=== PATIENT | female | born 1985 | race Two or more races ===

== ENCOUNTER 2018-05-08 04:41 | Emergency (ER) | payer MEDICAID ==
[~2018-05-08] VITALS: Ht 154.9 cm; Wt 75.7 kg
[2018-05-08 05:43] LABS: Basophils # (auto) 0.1 uL; Basophils % (auto) 0.6 % (0.0-2.0); Eosinophils # (auto) 0.2 uL; Eosinophils % (auto) 0.9 % (0.0-7.0); Hematocrit 44.8 % (36.0-46.0); Hemoglobin 14.9 g/dL (12.2-16.2); Lymphocytes # (auto) 1.6 uL; Lymphocytes % (auto) 7.4 % (10.0-50.0); Mean Corpuscular Hemoglobin 29.1 pg (28.0-32.0); Mean Corpuscular Hgb Conc. 33.3 g/dL (32.0-36.0); Mean Corpuscular Volume 87.4 fL (80.0-100.0); Monocytes # (auto) 1.3 uL; Neutrophils # (auto) 18.2 uL; Neutrophils % (auto) 85.1 % (37.0-80.0); Platelet Count (auto) 394 10^3/uL (140-450); Red Blood Cells 5.13 10^6/uL (4.0-5.20); Red Cell Distribution Width 13.3 % (11.8-14.3); White Blood Cell 21.4 10^3/uL (4.4-10.8)
[2018-05-08] MEDS ORDERED: MORPHINE SULFATE 4 MG/ML SYR/VIAL IV ONE (05:45)
[2018-05-08] MEDS ORDERED: ONDANSETRON HCL 4 MG/2 ML VIAL IV ONE (05:45)
[2018-05-08 05:46] LABS: Urine Bacteria FEW /hpf (None Seen); Urine Blood TRACE /uL (Negative); Urine Mucus FEW (None Seen); Urine Specific Gravity 1.034 (1.001-1.035); Urine WBC 31 /hpf (0 - 5)
[2018-05-08 06:07] LABS: Albumin 3.5 g/dL (3.4-5.0); BUN/Creatinine Ratio 21.9; Bilirubin, Total 0.4 mg/dL (0.2-1.0); Calcium 8.7 mg/dL (8.5-10.1); Potassium 4.8 mmol/L (3.5-5.1); Total Protein 7.6 g/dL (6.4-8.2)
[2018-05-08 07:23] VITALS: BP 109/63
[2018-05-08] MEDS ORDERED: SODIUM CHLORIDE 0.9% 1,000 ML IV ONE (08:04)
[2018-05-08] MEDS ORDERED: KETOROLAC TROMETH 30 MG/ML 1ML VIAL IV ONE (08:15)
[2018-05-08] MEDS ORDERED: cefTRIAXone 1GM/10ml IVPUSH 10 ML IV ONE (08:15)
[2018-05-08 09:38] LABS: Amphetamine Screen, Urine POSITIVE (NEGATIVE); Barbiturate Scree,Urine NEGATIVE (NEGATIVE); Benzodiazephine Screen, Urine NEGATIVE (NEGATIVE); Cannabinoid Screen, Urine NEGATIVE (NEGATIVE); Cocaine Screen, Urine NEGATIVE (NEGATIVE); Opiate Scree,Urine NEGATIVE (NEGATIVE); Phencyclidine Screen, Urine NEGATIVE (NEGATIVE)
[2018-05-08 09:49] LABS: Alcohol, Urine < 3.0 mg/dL (0-5)
== END 2018-05-08 09:07 | disposition home or self-care (01) ==
LOC: ER 04:44
DX: N39.0 Urinary tract infection, site not specified (principal); E11.9 Type 2 diabetes mellitus without complications; Z90.49 Acquired absence of other specified parts of digestive tract; Z87.442 Personal history of urinary calculi
CPT/HCPCS: 36415; 74176; 80053; 80307; 81001; 81025; 85025; 96361; 96374; 96375; 99285; J1885; J2270; J2405

== ENCOUNTER 2018-10-30 07:15 | Emergency (ER) | payer MEDICAID ==
[~2018-10-30] VITALS: Ht 154.9 cm; Wt 75.7 kg
[2018-10-30 07:27] VITALS: BP 138/86
[2018-10-30] MEDS ORDERED: SODIUM CHLORIDE 0.9% 1,000 ML IV ONE (08:00)
[2018-10-30] MEDS ORDERED: KETOROLAC TROMETH 30 MG/ML 1ML VIAL IV ONE (08:45)
[2018-10-30 09:01] LABS: Basophils # (auto) 0 uL; Basophils % (auto) 0.4 % (0.0-2.0); Eosinophils # (auto) 0.1 uL; Eosinophils % (auto) 1.3 % (0.0-7.0); Hematocrit 43.3 % (36.0-46.0); Hemoglobin 14.4 g/dL (12.2-16.2); Lymphocytes # (auto) 3.7 uL; Lymphocytes % (auto) 35.1 % (10.0-50.0); Mean Corpuscular Hemoglobin 29.1 pg (28.0-32.0); Mean Corpuscular Hgb Conc. 33.3 g/dL (32.0-36.0); Mean Corpuscular Volume 87.5 fL (80.0-100.0); Monocytes # (auto) 0.6 uL; Monocytes % (auto) 5.7 % (0.0-12.0); Neutrophils # (auto) 6.1 uL; Neutrophils % (auto) 57.5 % (37.0-80.0); Platelet Count (auto) 328 10^3/uL (140-450); Red Blood Cells 4.95 10^6/uL (4.0-5.20); Red Cell Distribution Width 12.9 % (11.8-14.3); White Blood Cell 10.6 10^3/uL (4.4-10.8)
[2018-10-30 09:22] LABS: BUN/Creatinine Ratio 23.2; Calcium 8.4 mg/dL (8.5-10.1); Potassium 4.5 mmol/L (3.5-5.1)
== END 2018-10-30 10:25 | disposition home or self-care (01) ==
LOC: ER 07:15
DX: G44.209 Tension-type headache, unspecified, not intractable (principal); H66.92 Otitis media, unspecified, left ear; E11.65 Type 2 diabetes mellitus with hyperglycemia; Z87.442 Personal history of urinary calculi; Z90.49 Acquired absence of other specified parts of digestive tract
CPT/HCPCS: 36415; 70450; 80048; 82962; 85025; 96361; 96374; 99284; J1885

== ENCOUNTER 2020-01-04 18:48 | Inpatient (IN) | payer MEDICAID ==
[~2020-01-04] VITALS: Ht 154.9 cm; Wt 68.3 kg
[2020-01-04] MEDS ORDERED: IPRATROPIUM BROM 0.5 MG/2.5ML INH SOL NEB ONE (19:00)
[2020-01-04] MEDS ORDERED: ALBUTEROL SULF 2.5 MG/0.5ML(0.5%) NEB SOLN NEB ONE (19:00)
[2020-01-04] MEDS ORDERED: ACETAMINOPHEN 325 MG TAB PO ONE (19:15)
[2020-01-04 20:26] LABS: Basophils # (auto) 0 10 ^3/uL (0-0.2); Basophils % (auto) 0.4 % (0.0-2.0); Eosinophils # (auto) 0 10 ^3/uL (0-0.8); Eosinophils % (auto) 0.1 % (0.0-7.0); Hematocrit 41.1 % (36.0-46.0); Hemoglobin 14.1 g/dL (12.2-16.2); Lymphocytes # (auto) 2.6 10 ^3/uL (0.4-5.4); Lymphocytes % (auto) 25.5 % (10.0-50.0); Mean Corpuscular Hemoglobin 30.1 pg (28.0-32.0); Mean Corpuscular Hgb Conc. 34.4 g/dL (32.0-36.0); Mean Corpuscular Volume 87.3 fL (80.0-100.0); Monocytes % (auto) 10.2 % (0.0-12.0); Neutrophils # (auto) 6.5 10 ^3/uL (1.6-8.6); Neutrophils % (auto) 63.8 % (37.0-80.0); Nucleated Red Blood Cells % 0.2 %; Platelet Count (auto) 343 10^3/uL (140-450); Red Blood Cells 4.71 10^6/uL (4.0-5.20); Red Cell Distribution Width 12.8 % (11.8-14.3); White Blood Cell 10.2 10^3/uL (4.4-10.8)
[2020-01-04] MEDS ORDERED: SODIUM CHLORIDE 0.9% 1,000 ML IVB ONE (20:43)
[2020-01-04 20:45] LABS: Albumin 3.2 g/dL (3.4-5.0); Calcium 9.1 mg/dL (8.5-10.1); Potassium 4.3 mmol/L (3.5-5.1)
[2020-01-04] MEDS ORDERED: PROMETHAZINE HCL 25 MG/ML 1ML IV PRN (20:45)
[2020-01-04] MEDS ORDERED: SODIUM CHLORIDE 0.9% 1,000 ML IV ONE (20:45)
[2020-01-04 20:48] LABS: BUN/Creatinine Ratio 9.6
[2020-01-04 20:51] LABS: Bilirubin, Total 0.3 mg/dL (0.2-1.0); Total Protein 7.9 g/dL (6.4-8.2)
[2020-01-04 21:25] LABS: Magnesium 1.6 mg/dL (1.6-2.6)
[2020-01-04 21:38] LABS: INR 0.99 (0.9-1.15); Partial Thromboplastin Time 28.2 sec (23.64-32.05)
[2020-01-04 22:42] LABS: Urine Bacteria FEW /hpf (None Seen); Urine Blood Negative /uL (Negative); Urine Mucus FEW (None Seen); Urine Specific Gravity 1.044 (1.001-1.035); Urine WBC 36 /hpf (0 - 5)
[2020-01-05] MEDS ORDERED: ONDANSETRON HCL 4 MG/2 ML VIAL IV PRN (00:45)
[2020-01-05] MEDS ORDERED: TEMAZEPAM 15 MG CAP PO PRN (00:45)
[2020-01-05] MEDS ORDERED: DEXTROSE (50%) 50ML SYRG IV PRN (00:45)
[2020-01-05 01:55] VITALS: BP 121/78
[2020-01-05] MEDS: InsuLIN REG 1unit/0.01ml Soln (100units/ml) SC SCH ×3 (06:45→18:07)
[2020-01-05] MEDS: ACCU-CHEK COMFORT CURVE STRIP VI SCH ×3 (06:45→18:05)
[2020-01-05] MEDS ORDERED: ALBUTEROL SULF 2.5 MG/0.5ML(0.5%) NEB SOLN NEB PRN (06:45)
[2020-01-05] MEDS ORDERED: IOHEXOL 350 MG/ML 100ML IJ ONE (07:06)
[2020-01-05 09:00] VITALS: BP 115/82
[2020-01-05] MEDS: cefTRIAXone 1GM/50ML D5W 50 ML IV SCH (09:24)
[2020-01-05] MEDS: ACETAMINOPHEN 325 MG TAB PO PRN ×2 (09:29→22:18)
[2020-01-05] MEDS: FAMOTIDINE 20 MG TAB PO SCH ×2 (09:30→22:17)
[2020-01-05] MEDS: OSELTAMIVIR 75 MG CAP PO SCH (09:30)
[2020-01-05 10:04] VITALS: BP 115/82
[2020-01-05] MEDS ORDERED: AZITHROMYCIN 500MG/ 250ML 250 ML IV ONE (11:15)
[2020-01-05] MEDS: SODIUM CHLORIDE 0.9% 1,000 ML IV SCH ×2 (11:20→21:15)
[2020-01-05] MEDS: IPRATROPIUM BROM 0.5 MG/2.5ML INH SOL NEB SCH ×2 (12:39→19:07)
[2020-01-05] MEDS: ALBUTEROL SULF 2.5 MG/0.5ML(0.5%) NEB SOLN NEB SCH ×2 (12:39→19:07)
[2020-01-05 13:00] VITALS: BP 112/67
[2020-01-05 17:00] VITALS: BP 103/58
[2020-01-05 22:18] VITALS: BP 126/80
[2020-01-05] MEDS: INSULIN LANTUS (GLARGINE) 1 /0.01ml (100units/ml) SC SCH (22:18)
[2020-01-06] MEDS: ACCU-CHEK COMFORT CURVE STRIP VI SCH ×4 (00:31→18:10)
[2020-01-06] MEDS: InsuLIN REG 1unit/0.01ml Soln (100units/ml) SC SCH ×4 (00:31→18:16)
[2020-01-06 00:53] LABS: Alcohol, Urine < 3.0 mg/dL (0-5); Amphetamine Screen, Urine POSITIVE (NEGATIVE); Barbiturate Scree,Urine NEGATIVE (NEGATIVE); Cannabinoid Screen, Urine NEGATIVE (NEGATIVE); Cocaine Screen, Urine NEGATIVE (NEGATIVE); Opiate Scree,Urine NEGATIVE (NEGATIVE); Phencyclidine Screen, Urine NEGATIVE (NEGATIVE)
[2020-01-06 01:09] LABS: Benzodiazephine Screen, Urine NEGATIVE (NEGATIVE)
[2020-01-06 05:30] VITALS: BP 103/59
[2020-01-06 06:55] LABS: Basophils # (auto) 0 10 ^3/uL (0-0.2); Basophils % (auto) 0.4 % (0.0-2.0); Eosinophils # (auto) 0.1 10 ^3/uL (0-0.8); Eosinophils % (auto) 0.8 % (0.0-7.0); Hemoglobin 13.2 g/dL (12.2-16.2); Lymphocytes # (auto) 3.4 10 ^3/uL (0.4-5.4); Lymphocytes % (auto) 54.7 % (10.0-50.0); Mean Corpuscular Hemoglobin 29.3 pg (28.0-32.0); Mean Corpuscular Hgb Conc. 33.7 g/dL (32.0-36.0); Mean Corpuscular Volume 86.7 fL (80.0-100.0); Monocytes # (auto) 0.8 10 ^3/uL (0-1.3); Neutrophils # (auto) 1.9 10 ^3/uL (1.6-8.6); Neutrophils % (auto) 31.1 % (37.0-80.0); Nucleated Red Blood Cells % 0.2 %; Platelet Count (auto) 287 10^3/uL (140-450); Red Cell Distribution Width 12.7 % (11.8-14.3); White Blood Cell 6.2 10^3/uL (4.4-10.8)
[2020-01-06 06:58] LABS: Potassium 3.8 mmol/L (3.5-5.1)
[2020-01-06 07:04] LABS: BUN/Creatinine Ratio 21.2; Calcium 8.3 mg/dL (8.5-10.1)
[2020-01-06] MEDS: SODIUM CHLORIDE 0.9% 1,000 ML IV SCH ×2 (07:15→17:15)
[2020-01-06] MEDS: ALBUTEROL SULF 2.5 MG/0.5ML(0.5%) NEB SOLN NEB SCH ×3 (07:16→18:39)
[2020-01-06] MEDS: IPRATROPIUM BROM 0.5 MG/2.5ML INH SOL NEB SCH ×3 (07:16→18:39)
[2020-01-06] MEDS: cefTRIAXone 1GM/50ML D5W 50 ML IV SCH (09:45)
[2020-01-06] MEDS: FAMOTIDINE 20 MG TAB PO SCH ×2 (09:45→21:43)
[2020-01-06] MEDS: OSELTAMIVIR 75 MG CAP PO SCH ×3 (09:45→21:43)
[2020-01-06 09:53] VITALS: BP 111/72
[2020-01-06] MEDS ORDERED: OSELTAMIVIR 75 MG CAP PO SCH (10:00)
[2020-01-06] MEDS ORDERED: AZITHROMYCIN 500MG/ 250ML 250 ML IV SCH (10:00)
[2020-01-06] MEDS: AZITHROMYCIN 250 MG TAB PO SCH (11:27)
[2020-01-06] MEDS: traMADol HCL 50 MG TAB PO PRN (11:41)
[2020-01-06 14:20] VITALS: BP 101/71
[2020-01-06 16:23] VITALS: BP 100/54
[2020-01-06] MEDS: INSULIN LANTUS (GLARGINE) 1 /0.01ml (100units/ml) SC SCH (21:52)
[2020-01-06 22:00] VITALS: BP 101/59
[2020-01-07] MEDS: InsuLIN REG 1unit/0.01ml Soln (100units/ml) SC SCH ×4 (00:26→18:29)
[2020-01-07] MEDS: ACCU-CHEK COMFORT CURVE STRIP VI SCH ×4 (00:26→18:28)
[2020-01-07] MEDS: SODIUM CHLORIDE 0.9% 1,000 ML IV SCH (03:15)
[2020-01-07 05:00] VITALS: BP 110/54
[2020-01-07] MEDS: ALBUTEROL SULF 2.5 MG/0.5ML(0.5%) NEB SOLN NEB SCH ×3 (06:00→18:09)
[2020-01-07] MEDS: IPRATROPIUM BROM 0.5 MG/2.5ML INH SOL NEB SCH ×3 (06:00→18:10)
[2020-01-07 06:21] LABS: BUN/Creatinine Ratio 23.1; Calcium 8.6 mg/dL (8.5-10.1); Potassium 4.4 mmol/L (3.5-5.1)
[2020-01-07 09:00] VITALS: BP 99/49
[2020-01-07] MEDS: cefTRIAXone 1GM/50ML D5W 50 ML IV SCH (11:47)
[2020-01-07] MEDS: OSELTAMIVIR 75 MG CAP PO SCH (11:47)
[2020-01-07] MEDS: FAMOTIDINE 20 MG TAB PO SCH (11:48)
[2020-01-07] MEDS: AZITHROMYCIN 250 MG TAB PO SCH (11:48)
[2020-01-07] MEDS ORDERED: LACTULOSE 20Gm/30ML SOLN PO ONE ×2 (13:15→14:45)
[2020-01-07] MEDS ORDERED: SODIUM CHLORIDE 0.9% 1,000 ML IV SCH (13:15)
[2020-01-07 13:22] VITALS: BP 117/69
[2020-01-07] MEDS: traMADol HCL 50 MG TAB PO PRN (13:42)
[2020-01-07 17:00] VITALS: BP 112/58
[2020-01-07 21:49] VITALS: BP 119/71
== END 2020-01-07 21:45 | disposition left against medical advice (07) | DRG 720 ==
LOC: ER 18:48 → OVERFLOW 18:49 → CENTRAL 01-05 01:54
PROVIDERS: ADMIT Nurse Practitioner; ATTEND Internal Medicine
DX: A41.9 Sepsis, unspecified organism (principal); J10.00 Influenza due to other identified influenza virus with unspecified type of pneumonia; E87.1 Hypo-osmolality and hyponatremia; E86.0 Dehydration; N39.0 Urinary tract infection, site not specified; R06.03 Acute respiratory distress; F17.210 Nicotine dependence, cigarettes, uncomplicated; Z53.29 Procedure and treatment not carried out because of patient's decision for other reasons; Z90.49 Acquired absence of other specified parts of digestive tract
CPT/HCPCS: 36415; 70450; 71045; 71046; 74176; 80048; 80053; 80307; 81001; 82150; 82962; 83036; 83690; 83735; 84484; 84702; 85025; 85379; 85610; 85730; 87086; 87804; 93005; 94640; 96361; 96374; G0378; J0696; J1815

== ENCOUNTER 2020-07-04 14:17 | Inpatient (IN) | payer MEDICAID ==
[~2020-07-04] VITALS: Ht 160 cm; Wt 67.6 kg
[2020-07-04] MEDS ORDERED: SODIUM CHLORIDE 0.9% 1,000 ML IV ONE ×2 (14:29)
[2020-07-04 15:35] LABS: Basophils # (auto) 0 10 ^3/uL (0-0.2); Basophils % (auto) 0.2 % (0.0-2.0); Eosinophils # (auto) 0.1 10 ^3/uL (0-0.8); Eosinophils % (auto) 0.8 % (0.0-7.0); Hematocrit 39.5 % (36.0-46.0); Hemoglobin 12.9 g/dL (12.2-16.2); Lymphocytes # (auto) 1.6 10 ^3/uL (0.4-5.4); Lymphocytes % (auto) 13.4 % (10.0-50.0); Mean Corpuscular Hemoglobin 29.3 pg (28.0-32.0); Mean Corpuscular Hgb Conc. 32.6 g/dL (32.0-36.0); Monocytes # (auto) 0.6 10 ^3/uL (0-1.3); Neutrophils # (auto) 9.4 10 ^3/uL (1.6-8.6); Neutrophils % (auto) 80.6 % (37.0-80.0); Nucleated Red Blood Cells % 0.1 %; Platelet Count (auto) 307 10^3/uL (140-450); Red Blood Cells 4.39 10^6/uL (4.0-5.20); Red Cell Distribution Width 12.8 % (11.8-14.3); White Blood Cell 11.7 10^3/uL (4.4-10.8)
[2020-07-04 15:53] LABS: Albumin 2.8 g/dL (3.4-5.0); Anion Gap 7 (5-15); Blood Urea Nitrogen 11 mg/dL (7-18); Calcium 7.2 mg/dL (8.5-10.1); Carbon Dioxide 22 mmol/L (21-32); Chloride 111 mmol/L (98-107); Potassium 4.4 mmol/L (3.5-5.1); Sodium 140 mmol/L (136-145)
[2020-07-04 16:00] LABS: Alanine Aminotransferase 26 U/L (13-56); Alkaline Phosphatase 148 U/L (45-117); Aspartate Aminotransferase 12 U/L (15-37); BUN/Creatinine Ratio 15.1; Bilirubin, Total 0.2 mg/dL (0.2-1.0); GFR African American 117 mL/min; GFR Non-African American 97 mL/min; Total Protein 5.9 g/dL (6.4-8.2)
[2020-07-04 16:16] LABS: Glucose 520 mg/dL (74-106)
[2020-07-04 17:06] LABS: Urine Bacteria FEW /hpf (None Seen); Urine Blood 3+ /uL (Negative); Urine Specific Gravity 1.028 (1.001-1.035); Urine WBC 5 /hpf (0 - 5)
[2020-07-04] MEDS ORDERED: cefTRIAXone 1GM/50ML D5W 50 ML IV ONE (17:30)
[2020-07-04] MEDS ORDERED: InsuLIN REG 1unit/0.01ml Soln (100units/ml) IV ONE (17:30)
[2020-07-04] MEDS ORDERED: NITROGLYCERIN 0.4 MG SL TAB SL PRN (18:30)
[2020-07-04] MEDS ORDERED: LORazepam 0.5 MG TAB PO PRN (18:30)
[2020-07-04] MEDS ORDERED: ENOXAPARIN SOD 40 MG/0.4 ML SYRINGE SC ONE (18:30)
[2020-07-04] MEDS ORDERED: MORPHINE SULF INJ 2 MG/ML SYRINGE 1ML IV PRN ×2 (18:30)
[2020-07-04] MEDS ORDERED: ALUM & MAG HYDROX-SIMETH LIQ(MAALOX) 30 ML PO PRN (18:30)
[2020-07-04] MEDS ORDERED: INSULIN LANTUS (GLARGINE) 1 /0.01ml (100units/ml) SC ONE (18:30)
[2020-07-04] MEDS ORDERED: DEXTROSE (50%) 50ML SYRG IV PRN (18:30)
[2020-07-04] MEDS ORDERED: HYDROcodone-ACET 5/325MG TAB PO PRN (18:30)
[2020-07-04] MEDS ORDERED: SODIUM CHLORIDE 0.9% 2,000 ML IV ONE (18:30)
[2020-07-04] MEDS ORDERED: METOCLOPRAMIDE HCL 5MG/ml INJ 2ml VIAL IV PRN (18:30)
[2020-07-04] MEDS ORDERED: ACETAMINOPHEN 325 MG TAB PO PRN (18:30)
[2020-07-04] MEDS ORDERED: DOCUSATE SOD 100 MG CAP PO PRN (18:30)
[2020-07-04 19:47] LABS: Cholesterol 207 mg/dL (< 200)
[2020-07-04 19:51] LABS: HDL Cholesterol 37 mg/dL (40-59); LDL Cholesterol 133 mg/dL (< 100); Triglycerides 351 mg/dL (< 150)
[2020-07-04 20:12] LABS: Alcohol, Urine < 3.0 mg/dL (0-10); Amphetamine Screen, Urine POSITIVE (NEGATIVE); Barbiturate Scree,Urine NEGATIVE (NEGATIVE); Benzodiazephine Screen, Urine NEGATIVE (NEGATIVE); Cannabinoid Screen, Urine NEGATIVE (NEGATIVE); Cocaine Screen, Urine NEGATIVE (NEGATIVE); Opiate Scree,Urine NEGATIVE (NEGATIVE); Phencyclidine Screen, Urine NEGATIVE (NEGATIVE)
[2020-07-04] MEDS: SODIUM CHLORIDE 0.9% 1,000 ML IV SCH (20:59)
[2020-07-04 21:42] VITALS: BP 111/69
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
[2020-07-04 22:31] VITALS: BP 111/69
[2020-07-05] MEDS: InsuLIN REG 1unit/0.01ml Soln (100units/ml) SC SCH ×3 (00:06→12:40)
[2020-07-05] MEDS: ACCU-CHEK COMFORT CURVE STRIP VI SCH ×3 (00:12→12:39)
[2020-07-05 05:00] VITALS: BP 116/83
[2020-07-05] MEDS: SODIUM CHLORIDE 0.9% 1,000 ML IV SCH (05:08)
[2020-07-05 08:00] VITALS: BP 138/88
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
[2020-07-05 09:00] VITALS: BP 138/88
[2020-07-05] MEDS ORDERED: ENOXAPARIN SOD 40 MG/0.4 ML SYRINGE SC SCH (10:00)
[2020-07-05] MEDS ORDERED: CEFTRIAXONE SODIUM 2 GM in D5W 5% 50 ML IV SCH (10:00)
[2020-07-05] MEDS ORDERED: ASPirin 81 mg TAB PO SCH (10:00)
[2020-07-05] MEDS ORDERED: ATOR20TA50 PO (12:08)
[2020-07-05] MEDS ORDERED: CIPR-173 PO (12:08)
[2020-07-05] MEDS ORDERED: METF-372 PO (12:08)
[2020-07-05 12:56] VITALS: BP 138/88
[2020-07-05 13:00] VITALS: BP 132/90
--- NOTE | 2020-07-05 14:24 | NUR ---
assessment Patient is a 34 year old female who is alert and oriented. Patients cognitive abilities are intact. Prior to admission patient lived home with family and functioned independently. Patient informed me she is able to care for her own ADLs. Per patient she will return home to her prior living arrangements post discharge and family will transport her home. I informed patient of her consult regarding requesting info on her insurance and safety. Patient stated she wants to know the name of her insurance. I informed her it was [facility]. Patient informed me she never requested anything about safety. Patient feels safe returning home on discharge. Patient has no post discharge needs identified. I informed patient she has a right to speak to a social media intern regarding all care. I informed patient she has a right to participate in any and all discharge planning. Patient does not have a POA and advanced directive. I have offered patient information on POA and advanced directives. I informed the patient the advantages and benefits of having an Advanced Directive. Patient verbalized understanding and agreed to discharge plan. Addendum: 07/05/20 at 1426 by Mayra DE Amended: Links added.
--- NOTE | 2020-07-05 14:55 | NUR ---
Discharge instructions given as ordered. Encourage to follow up with PMD as instructed. All questions and concerns addressed. Patient verbalized understanding. Medication reconciliation form completed and copy given to patient. No home medications held in Pharmacy, and no needed vaccines to be given. IV removed with catheter intact, pressure dressing applied. Telemetry unit returned to ICU. Pt educated to [facility] way out of the hospital to picker tender her medicaiton, pt verbalized understanding.
--- NOTE | 2020-07-05 15:30 | NUR ---
Patient taken to vehicle via wheelchair with all personal belongings, accompanied by staff member. No distress noted at time of departure.
[2020-07-05] MEDS ORDERED: ATORVASTATIN 20 MG TAB PO SCH (22:00)
== END 2020-07-05 15:30 | disposition home or self-care (01) | DRG 420 ==
LOC: ER 14:17 → EDUNIT# 14:17 → EDBD 14:17 → TELE 14:18 → TELE-WESTW 21:42
PROVIDERS: ADMIT Hospitalist; ATTEND Internal Medicine
DX: E11.65 Type 2 diabetes mellitus with hyperglycemia (principal); E86.0 Dehydration; D72.829 Elevated white blood cell count, unspecified; E83.51 Hypocalcemia; N39.0 Urinary tract infection, site not specified; E78.5 Hyperlipidemia, unspecified; F15.90 Other stimulant use, unspecified, uncomplicated; F17.210 Nicotine dependence, cigarettes, uncomplicated; Y09 Assault by unspecified means; Z91.19 Patient's noncompliance with other medical treatment and regimen; Z82.49 Family history of ischemic heart disease and other diseases of the circulatory system; Z83.3 Family history of diabetes mellitus; Z87.442 Personal history of urinary calculi; Z90.49 Acquired absence of other specified parts of digestive tract; Z79.4 Long term (current) use of insulin; F19.10 Other psychoactive substance abuse, uncomplicated
CPT/HCPCS: 36415; 36600; 70450; 71045; 80053; 80061; 80307; 81001; 82805; 82962; 83036; 83930; 84484; 85025; 87040; 87086; 87088; 87186; 93005; 99291; G0378; J0696; J1815; J7060

== ENCOUNTER 2024-11-10 10:28 | Emergency (ER) | payer MEDICAID ==
[~2024-11-10] VITALS: Ht 154.9 cm; Wt 68.9 kg
[~2024-11-10 10:28] MED LIST: ATOR20TA50 PO; CIPR-173 PO; METF-372 PO
[2024-11-10 10:40] VITALS: BP 135/81; TEMP 97.9
--- NOTE | 2024-11-10 11:09 | DVH ---
EXAM: XY CHEST TWO VIEWS ROUTINE CLINICAL HISTORY: PAINFUL COUGH COMPARISON: CHEST TWO VIEWS ROUTINE on DOS: 01/04/20 TECHNIQUE: Frontal and lateral view of the chest was obtained FINDINGS: Lines and Tubes: None Lungs: No focal consolidation. Pleura: No effusion. No pneumothorax. Cardiomediastinal contours: Unremarkable Pulmonary vasculature: Within normal limits. Bones: No acute osseous abnormality. IMPRESSION: 1. No acute cardiopulmonary disease. HS:Y
[2024-11-10 12:09] VITALS: PULSE 105; RESP 18; O2SAT 99
[2024-11-10] MEDS ORDERED: PROM1SOL4 PO (12:49)
[2024-11-10] MEDS ORDERED: BENZ200C64 PO (12:49)
[2024-11-10] MEDS ORDERED: ALBU108A5 IN (12:49)
--- NOTE | 2024-11-10 12:49 | ED.PDOC ---
SOB-HPI HPI Comments cough x 4 days dry Chief Complaint: Flu like Time Seen by MD: 11:38 Primary Care Provider: NONE Mode of Arrival: Ambulatory Past Medical History PAST MEDICAL HISTORY: DM, Kidney Stones Surgical History: Cholecystectomy Family History Family History: Family hx of DM, Family hx of HTN Social History Smoker: Cigarettes, Less Than 1 Pack/Day Alcohol: Denies ETOH Use Drugs: Denies Drug Use Lives In: Home X-Ray, Labs, Meds, VS Vital Signs Date Time Temp Pulse Resp B/P (MAP) Pulse Ox O2 Delivery O2 Flow Rate FiO2 11/10/24 12:09 105 18 99 Room Air 11/10/24 11:00 18 99 Room Air* 0 21 11/10/24 10:40 97.9 105 18 135/81 (99) 99 Departure 1 Departure Time of Disposition: 12:48 Impression: Primary Impression: Bronchitis Disposition: 01 HOME / SELF CARE / HOMELESS Condition: Stable e-Prescriptions Albuterol Sulfate (Albuterol Sulfate Hfa) 108 Mcg/Act Aer 108 MCG IN Q6HP PRN for 30 Days, #1 AER 0 Refills Prov: EMMY LITTLE NP 11/10/24 Promethazine-Dm (Promethazine Dm 6.25-15 mg/5Ml) 1 Anamaria Anamaria 5 ML PO TID for 10 Days, #150 ML 0 Refills Prov: EMMY LITTLE NP 11/10/24 Benzonatate (Benzonatate) 200 Mg Cap 1 CAP PO TID for 10 Days, #30 CAP 0 Refills Prov: EMMY LITTLE NP 11/10/24 Discharged With: Self EMMY LITTLE NP Nov 10, 2024 12:49
== END 2024-11-10 12:49 | disposition home or self-care (01) ==
LOC: ER 10:28
DX: J40 Bronchitis, not specified as acute or chronic (principal); F17.210 Nicotine dependence, cigarettes, uncomplicated; E11.9 Type 2 diabetes mellitus without complications; Z90.49 Acquired absence of other specified parts of digestive tract; Z87.442 Personal history of urinary calculi
CPT/HCPCS: 71046

== ENCOUNTER 2024-11-10 20:10 | Emergency (ER) | payer MEDICAID, OTHER ==
[~2024-11-10] VITALS: Ht 154.9 cm; Wt 69.9 kg
[~2024-11-10 20:10] MED LIST changes: +ALBU108A5 IN; +BENZ200C64 PO; +PROM1SOL4 PO
[2024-11-10 20:30] VITALS: BP 135/78; PULSE 117; RESP 18; O2SAT 100
[2024-11-10] MEDS ORDERED: SODIUM CHLORIDE 0.9% 1,000 ML IV ONE (20:45)
[2024-11-10] MEDS ORDERED: HYDROcodone-ACET 5/325MG TAB PO ONE (20:45)
--- NOTE | 2024-11-10 21:09 | ED.PDOC ---
History of Present Illness HPI Comments 38 year old female presents to the ED with a chief complaint of headache onset today around 1930. Patient states she was discharged from this ED today with a diagnosis of Bronchitis and was prescribed medication, went home and used the inhaler that was prescribed. Patient began experiencing headache, worse on LT side radiating to neck, dizziness, blurry vision, sees black lines from LT eye, sees black spots from RT eye. Patient checked her blood glucose at home, was 500 and took her Metformin and insulin prior to ED arrival. During triage patient's BG was 150. Past medical history of DM, HLD. Denies nausea, vomiting, diarrhea, abdominal pain, chest pain. No other symptoms or modifying factors present at this time. Chief Complaint: Headache Time Seen by MD: 20:51 Primary Care Provider: NONE Reviewed Notes: Medications, Allergies Allergies: Coded Allergies: NO KNOWN ALLERGIES (Unverified , 05/08/18) Home Meds Active Scripts Albuterol Sulfate (Albuterol Sulfate Hfa) 108 Mcg/Act Aer, 108 MCG IN Q6HP PRN for 30 Days, #1 AER 0 Refills Prov:EMMY LITTLE NP 11/10/24 Promethazine-Dm (Promethazine Dm 6.25-15 mg/5Ml) 1 Anamaria Anamaria, 5 ML PO TID for 10 Days, #150 ML 0 Refills Prov:EMMY LITTLE NP 11/10/24 Benzonatate (Benzonatate) 200 Mg Cap, 1 CAP PO TID for 10 Days, #30 CAP 0 Refills Prov:EMMY LITTLE NP 11/10/24 Atorvastatin Calcium (ATORVASTATIN CALCIUM) 20 Mg Tab, 20 MG PO HS for 30 Days, #30 TAB Prov:ALEX BILLY MD 07/05/20 Ciprofloxacin Hcl (Cipro) 500 Mg Tab, 1 TAB PO BID, #10 TAB Prov:ALEX BILLY MD 07/05/20 Metformin Hydrochloride (Metformin Hcl) 1,000 Mg Tab, 1 TAB PO BIDWM, #120 TAB 5 Refills Prov:ALEX BILLY MD 07/05/20 Information Source: Patient Mode of Arrival: Ambulatory Severity: Moderate Timing: Hours Duration: Since onset Prehospital treatment: Other (Metformin ) Past Medical History PAST MEDICAL HISTORY: DM, High Lipids, Kidney Stones Surgical History: Cholecystectomy Family History Family History: Family hx of DM, Family hx of HTN Social History Smoker: Cigarettes, Less Than 1 Pack/Day Alcohol: Denies ETOH Use Drugs: Denies Drug Use Lives In: Home Constitutional: denies: chills, diaphoresis, fatigue, fever, malaise, sweats, weakness, others EENTM: reports: blurred vision; denies: double vision, ear bleeding, ear discharge, ear drainage, ear pain, ear ringing, eye pain, eye redness, hearing loss, mouth pain, mouth swelling, nasal discharge, nose bleeding, nose congestion, nose pain, photophobia, tearing, throat pain, throat swelling, voice changes, others Respiratory: reports: cough, shortness of breath; denies: hemoptysis, orthopnea, SOB at rest, SOB with excertion, stridor, wheezing, others Cardiovascular: denies: chest pain, dizzy spells, diaphoresis, Dyspnea on exertion, edema, irregular heart beat, left arm pain, lightheadedness, palpitations, PND, syncope, others Gastrointestinal: denies: abdomen distended, abdominal pain, blood streaked bowels, constipated, diarrhea, dysphagia, difficulty swallowing, hematemesis, melena, nausea, poor appetite, poor fluid intake, rectal bleeding, rectal pain, vomiting, others Genitourinary: denies: abnormal vagina bleeding, burning, dyspareunia, dysuria, flank pain, frequency, hematuria, incontinence, pain, , vagina discharge, urgency, others Neurological: reports: dizziness, headache; denies: fainting, left sided numbness, left sided weakness, numbness, paresthesia, pre-existing deficit, right sided numbness, right sided weakness, seizure, speech problems, tingling, tremors, weakness, others Musculoskeletal: reports: neck pain; denies: back pain, gout, joint pain, joint swelling, muscle pain, muscle stiffness, others Integumetry: denies: bruises, change in color, change in hair/nails, dryness, laceration, lesions, lumps, rash, wounds, others Allergic/Immunocompromised: denies: Difficulty Healing, Frequent Infections, Hives, Itching, others Hematologic/Lymphatic: denies: anemia, blood clots, easy bleeding, easy bruising, swollen glands, others Endocrine: denies: excessive hunger, excessive sweating, excessive thirst, excessive urination, flushing, intolerance to cold, intolerance to heat, unexplained weight gain, unexplained weight loss, others Psychiatric: denies: anxiety, bipolar disorder, depression, hopeless, panic disorder, schizophrenia, sleepless, suicidal, others All Other Systems: Reviewed and Negative Physical Exam General Appearance: Mild Distress HEENT: Other (Pupils symmetric, extraocular movements intact, no facial asymmetry) Neck: Full Range of Motion, Normal Inspection, Other (Left cervical paraspinal muscular tenderness/spasm) Respiratory: Lungs Clear, No Accessory Muscle Use, No Respiratory Distress, Normal Breath Sounds Cardiovascular: No Edema, No JVD, Regular Rate/Rhythm Breast Exam: Deferred Gastrointestinal: Non Tender, Soft Genitalia: Deferred Pelvic: Deferred Rectal: Deferred Extremities: Normal inspection, Normal range of motion, Non-tender, No pedal edema Neurologic: Alert (Oriented x4), Normal Affect, Normal Mood, Other (Ambulatory without difficulty. No gross focal deficit.) Cerebellar Function: NOT DONE Reflexes: NOT DONE Skin: Dry, Normal Color, Warm Lymphatic: NOT DONE Was a procedure done? Was a procedure done?: No Differential Dx Considerations may include: CVA, TIA, migraine, tension headache, intracranial hemorrhage, mass lesion, among others X-Ray, Labs, Meds, VS Vital Signs Date Time Temp Pulse Resp B/P (MAP) Pulse Ox O2 Delivery O2 Flow Rate FiO2 11/10/24 20:30 97.8 117 18 135/78 (97) 100 Lab Test 11/10/24 22:07 11/10/24 21:10 11/10/24 21:00 11/10/24 20:23 Range/Units Troponin I High Sensitivity < 3 L < 3 L </=34 ng/L White Blood Count 8.6 4.4-10.8 10^3/uL Red Blood Count 4.71 4.0-5.20 10^6/uL Hemoglobin 14.1 12.2-16.2 g/dL Hematocrit 41.4 36.0-46.0 % Mean Corpuscular Volume 87.9 80.0-100.0 fL Mean Corpuscular Hemoglobin 29.9 28.0-32.0 pg Mean Corpuscular Hemoglobin Concent 34.1 32.0-36.0 g/dL Red Cell Distribution Width 13.2 11.8-14.3 % Platelet Count 278 140-450 10^3/uL Mean Platelet Volume 7.3 6.9-10.8 fL Neutrophils (%) (Auto) 66.7 37.0-80.0 % Lymphocytes (%) (Auto) 24.7 10.0-50.0 % Monocytes (%) (Auto) 7.6 0.0-12.0 % Eosinophils (%) (Auto) 0.6 0.0-7.0 % Basophils (%) (Auto) 0.4 0.0-2.0 % Neutrophils # (Auto) 5.7 1.6-8.6 10 ^3/uL Lymphocytes # (Auto) 2.1 0.4-5.4 10 ^3/uL Monocytes # (Auto) 0.6 0-1.3 10 ^3/uL Eosinophils # (Auto) 0.1 0-0.8 10 ^3/uL Basophils # (Auto) 0 0-0.2 10 ^3/uL Nucleated Red Blood Cells 0.1 % Sodium Level 140 136-145 mmol/L Potassium Level 4.4 3.5-5.1 mmol/L Chloride Level 103 98-107 mmol/L Carbon Dioxide Level 28 20-31 mmol/L Anion Gap 9 5-15 Blood Urea Nitrogen 12 9-23 mg/dL Creatinine 0.67 0.550-1.02 mg/dL Glomerular Filtration Rate Calc 115 >90 mL/min BUN/Creatinine Ratio 17.9 10.0-20.0 Serum Glucose 135 H 74-106 mg/dL Calcium Level 10.1 8.7-10.4 mg/dL Total Bilirubin 0.3 0.2-1.0 mg/dL Aspartate Amino Transferase (AST) 19 13-40 U/L Alanine Aminotransferase (ALT) 32 7-40 U/L Alkaline Phosphatase 69 46-116 U/L B-Type Natriuretic Peptide 11.78 0-100 pg/mL Total Protein 7.3 5.7-8.2 g/dL Albumin 4.5 3.2-4.8 g/dL Beta-Hydroxybutyric Acid 0.082 < 0.4 mmol/L Beta HCG, Quantitative 0.6 L 1.5-4.2 mIU/mL Blood Gas Specimen Type Arterial Blood Gas Sample Site Right radial Blood Gas Patient Temperature 37.0 Arterial Blood Date Drawn [id number] Arterial Blood pH 7.419 7.350-7.450 Arterial Blood Partial Pressure CO2 39.4 32.0-45.0 mmHg Arterial Blood Partial Pressure O2 61.5 L 83.0-108.0 mmHg Arterial Blood HCO3 24.9 21.0-28.0 mmol/L Arterial Blood Oxygen Saturation 90.7 L 94.0-98.0 % Arterial Blood Base Excess 0.5 -2.0-3.0 mmol/L Arterial Blood Oxyhemoglobin 89.7 L 94.0-98.0 % Arterial Blood Carboxyhemoglobin 0.7 0.5-1.5 % Arterial Blood Methemoglobin 0.4 0.0-1.5 % Kimo Test Modified Blood Gas Total Hemoglobin 14.00 12.0-16.0 g/dL Blood Gas Modality Room air FiO2 % 21.0 POC Glucose 150 H 70-106 mg/dl [place] [address] Ph: [phone] DIAGNOSTIC IMAGING Diagnostic Imaging Report : [id number] Signed PATIENT: JAVED SMITH EACCT: [id number] UNIT: [id number] : 1985 LOC: ER ROOM / BED: / AGE / SEX: 38 / F ADM STATUS: REG ER SERVICE 41 ORDERING PHYSICIAN: ELLEN WELLS MD PROCEDURE(s): CXRP - CHEST PORTABLE REASON: hyperglycemia ORDER NUMBER(s): [id number], ACCESSION NUMBER(s): [id number] CHEST RADIOGRAPH Indication: hyperglycemia Technique: Single frontal view of the chest was obtained COMPARISON: CHEST PORTABLE on DOS: 07/04/20, CHEST PORTABLE on DOS: 01/04/20 FINDINGS: Lines and Tubes: None Lungs: Clear Pleura: No effusion. No pneumothorax. Cardiomediastinal contours: Unremarkable Bones: Unremarkable IMPRESSION: 1. No acute disease. ATED BY: GEOVANNY KAUR MD DICTATED DATE/TIME: 11/10/242227 SIGNED BY: GEOVANNY KAUR MD SIGNED DATE/TIME: 11/10/242227 CC: [address] [address] Ph: [phone] DIAGNOSTIC IMAGING Diagnostic Imaging Report : [id number] Signed PATIENT: JAVED SMITH ACCT: [id number] UNIT: [id number] : 1985 LOC: ER ROOM / BED: / AGE / SEX: 38 / F ADM STATUS: REG ER SERVICE 41 ORDERING PHYSICIAN: ELLEN WELLS MD PROCEDURE(s): HWOCT - HEAD WITHOUT CONTRAST REASON: headache ORDER NUMBER(s): [id number], ACCESSION NUMBER(s): [id number] EXAM: CT HEAD WITHOUT CONTRAST INDICATION: headache TECHNIQUE: CT of the head without intravenous contrast. Radiation Dose : 1. Head: CT Dose: CTDI volume is 51.98 mGy. Dose-length product is 833.44 mGy*cm The dose indicators for CT are the volume Computed Tomography (CT) Dose Index (CTDIvol) and the Dose Length Product (DLP), and are measured in units of mGy and mGy-cm, respectively. These indicators are not patient dose, but values generated from the CT scanner acquisition factors. The report includes radiation exposure data for exposures received during this examination. COMPARISON: HEAD WITHOUT CONTRAST on DOS: 07/04/20, HEAD WITHOUT CONTRAST on DOS: 01/04/20 FINDINGS: There is no evidence of acute intracranial hemorrhage, extra-axial collection, mass effect, midline shift, herniation or hydrocephalus. The ventricles, sulci and cisterns are age appropriate. The de [place] vega-white differentiation is intact. Patchy periventricular and subcortical white matter hypoattenuation is nonspecific but may be related to small vessel ischemic disease. The visualized paranasal sinuses and mastoid air cells are clear. The surrounding soft tissues and osseous structures are unremarkable. IMPRESSION: No acute intracranial abnormality. ATED BY: DEBO SCOTT DO DICTATED DATE/TIME: 11/10/242231 SIGNED BY: DEBO SCOTT DO SIGNED DATE/TIME: 11/10/242231 CC: X-Ray, Labs, Meds, VS Comment 38-year-old female with a history of diabetes and dyslipidemia complaining of a severe headache and vision changes Vitals remarkable for heart rate 117 Exam unremarkable Rhythm strip independently interpreted by me: Sinus rhythm, rate 98, no ectopy. CT head unremarkable Chest x-ray unremarkable CBC, CMP, BNP, troponins, hCG, beta hydroxybutyrate and ABG unremarkable for any abnormality of acute significance. Blood glucose 135. Patient treated with the following in the ED: 1 L 0.9 normal saline IV bolus, Sublette 5/325 mg, 2 tabs p.o. , aspirin 325 mg p.o. On re-evaluation, pain somewhat improved but still present. No new focal neurologic changes. Severe headache and symptoms consistent with scotomata are concerning for possible CVA/TIA, could also be consistent with atypical migraine. Patient has CVA risk factors including diabetes and dyslipidemia. Plan was to admit the patient for brain MRI and Neurology evaluation. When hospitalist attempted to call the patient for evaluation, there was no answer. Pt was called an additional time, with no answer. It was assumed the patient eloped. Time of 1ST Reevaluation: 21:21 Reevaluation 1ST: Unchanged Patient Education/Counseling: Diagnosis, Treatment, Prognosis Family Education/Counseling: No Family Present Additional Information I reviewed the following notes from patient's past medical encounters: The following tests were ordered, and results were reviewed by me: EKG, TROP - x3, CBC, CMP, BNP, UA, EKG, ACCUCHECK, CT HEAD WITHOUT CONTRAST, BETA- HYDROXYBUTYRATE, ABG W/ CO-OX, BETA HCG I reviewed and agreed with the following test results read by other providers: CT HEAD WITHOUT CONTRAST I discussed treatment and results with medical personnel and: patient Departure 1 Departure Time of Disposition: 23:34 Impression: Primary Impression: Headache Qualified Codes: R51.9 - Headache, unspecified Additional Impression: Vision disturbance Disposition: 07 LEFT AWOL/ELOPED Condition: Guarded Discharged With: Self Critical Care Note Critical Care Time?: No Stability Stability form required: No Heart Score Heart Score: Heart Score Response (Comments) Value History N/A 0 EKG N/A 0 Age N/A 0 Risk Factors N/A 0 Troponin N/A 0 Total 0 I personally scribed for ELLEN WELLS MD ([email or web address]) on 11/10/24 at 21:09. Electronically submitted by Candie Sarmiento ([email or web address]). I personally scribed for ELLEN WELLS MD ([email or web address]) on 11/10/24 at 21:11. Electronically submitted by Candie Sarmiento ([email or web address]). I personally scribed for ELLEN WELLS MD ([email or web address]) on 11/10/24 at 22:40. Electronically submitted by Candie Sarmiento ([email or web address]). ELLEN WELLS MD Nov 10, 2024 21:09
[2024-11-10 21:19] LABS: Base Excess 0.5 mmol/L (-2.0-3.0)
[2024-11-10 21:49] LABS: Basophils # (auto) 0 10 ^3/uL (0-0.2); Basophils % (auto) 0.4 % (0.0-2.0); Eosinophils # (auto) 0.1 10 ^3/uL (0-0.8); Eosinophils % (auto) 0.6 % (0.0-7.0); Hematocrit 41.4 % (36.0-46.0); Hemoglobin 14.1 g/dL (12.2-16.2); Lymphocytes # (auto) 2.1 10 ^3/uL (0.4-5.4); Lymphocytes % (auto) 24.7 % (10.0-50.0); Mean Corpuscular Hemoglobin 29.9 pg (28.0-32.0); Mean Corpuscular Hgb Conc. 34.1 g/dL (32.0-36.0); Mean Corpuscular Volume 87.9 fL (80.0-100.0); Monocytes # (auto) 0.6 10 ^3/uL (0-1.3); Monocytes % (auto) 7.6 % (0.0-12.0); Neutrophils # (auto) 5.7 10 ^3/uL (1.6-8.6); Neutrophils % (auto) 66.7 % (37.0-80.0); Nucleated Red Blood Cells % 0.1 %; Platelet Count (auto) 278 10^3/uL (140-450); Red Blood Cells 4.71 10^6/uL (4.0-5.20); Red Cell Distribution Width 13.2 % (11.8-14.3); White Blood Cell 8.6 10^3/uL (4.4-10.8)
[2024-11-10 21:53] LABS: Alanine Aminotransferase 32 U/L (7-40); Albumin 4.5 g/dL (3.2-4.8); Alkaline Phosphatase 69 U/L (46-116); Anion Gap 9 (5-15); Aspartate Aminotransferase 19 U/L (13-40); BUN/Creatinine Ratio 17.9 (10.0-20.0); Blood Urea Nitrogen 12 mg/dL (9-23); Calcium 10.1 mg/dL (8.7-10.4); Carbon Dioxide 28 mmol/L (20-31); Chloride 103 mmol/L (98-107); Potassium 4.4 mmol/L (3.5-5.1); Sodium 140 mmol/L (136-145)
[2024-11-10 21:54] LABS: Total Protein 7.3 g/dL (5.7-8.2)
[2024-11-10 21:58] LABS: Bilirubin, Total 0.3 mg/dL (0.2-1.0); Glucose 135 mg/dL (74-106)
--- NOTE | 2024-11-10 22:31 | DVH ---
CHEST RADIOGRAPH Indication: hyperglycemia Technique: Single frontal view of the chest was obtained COMPARISON: CHEST PORTABLE on DOS: 07/04/20, CHEST PORTABLE on DOS: 01/04/20 FINDINGS: Lines and Tubes: None Lungs: Clear Pleura: No effusion. No pneumothorax. Cardiomediastinal contours: Unremarkable Bones: Unremarkable IMPRESSION: 1. No acute disease.
--- NOTE | 2024-11-10 22:34 | DVH ---
EXAM: CT HEAD WITHOUT CONTRAST INDICATION: headache TECHNIQUE: CT of the head without intravenous contrast. Radiation Dose : 1. Head: CT Dose: CTDI volume is 51.98 mGy. Dose-length product is 833.44 mGy*cm The dose indicators for CT are the volume Computed Tomography (CT) Dose Index (CTDIvol) and the Dose Length Product (DLP), and are measured in units of mGy and mGy-cm, respectively. These indicators are not patient dose, but values generated from the CT scanner acquisition factors. The report includes radiation exposure data for exposures received during this examination. COMPARISON: HEAD WITHOUT CONTRAST on DOS: 07/04/20, HEAD WITHOUT CONTRAST on DOS: 01/04/20 FINDINGS: There is no evidence of acute intracranial hemorrhage, extra-axial collection, mass effect, midline s hift, herniation or hydrocephalus. The ventricles, sulci and cisterns are age appropriate. The de [place] vega-white differentiation is intact. Patchy periventricular and subcortical white matter hypoattenuation is nonspecific but may be related to small vessel ischemic disease. The visualized paranasal sinuses and mastoid air cells are clear. The surrounding soft tissues and osseous structures are unremarkable. IMPRESSION: No acute intracranial abnormality.
== END 2024-11-11 00:03 | disposition left against medical advice (07) ==
LOC: ER 20:10
DX: H53.8 Other visual disturbances (principal); R51.9 Headache, unspecified; E11.9 Type 2 diabetes mellitus without complications; E78.5 Hyperlipidemia, unspecified; F17.210 Nicotine dependence, cigarettes, uncomplicated; Z90.49 Acquired absence of other specified parts of digestive tract; Z79.899 Other long term (current) drug therapy
CPT/HCPCS: 36415; 36600; 70450; 71045; 80053; 82010; 82805; 82962; 83880; 84484; 84702; 85025

== ENCOUNTER 2025-01-26 00:17 | Emergency (ER) | payer MEDICAID ==
[~2025-01-26] VITALS: Ht 154.9 cm; Wt 67.5 kg
[2025-01-26 00:39] VITALS: BP 128/77; RESP 16; TEMP 97.6; O2SAT 98
[2025-01-26 04:27] LABS: Lactic Acid w/Reflex 2.9 mmol/L (0.4-2.0)
[2025-01-26] MEDS ORDERED: SODIUM CHLORIDE 0.9% 1,000 ML IV ONE (04:30)
--- NOTE | 2025-01-26 04:30 | DVH ---
CHEST RADIOGRAPH Indication: CP Technique: Single frontal view of the chest was obtained Comparison: XY CHEST PORTABLE on DOS: 11/10/24 FINDINGS: Lines and Tubes: None Lungs: No focal consolidation. Pleura: No effusion. No pneumothorax. Cardiomediastinal contours: Unremarkable Bones: No acute osseous abnormality. IMPRESSION: 1. No acute cardiopulmonary disease.
[2025-01-26 04:35] LABS: Basophils # (auto) 0 10 ^3/uL (0-0.2); Basophils % (auto) 0.2 % (0.0-2.0); Eosinophils # (auto) 0.1 10 ^3/uL (0-0.8); Eosinophils % (auto) 0.4 % (0.0-7.0); Hematocrit 40.4 % (36.0-46.0); Hemoglobin 13.2 g/dL (12.2-16.2); Lymphocytes # (auto) 1.2 10 ^3/uL (0.4-5.4); Lymphocytes % (auto) 5.9 % (10.0-50.0); Mean Corpuscular Hemoglobin 28.6 pg (28.0-32.0); Mean Corpuscular Hgb Conc. 32.6 g/dL (32.0-36.0); Mean Corpuscular Volume 87.7 fL (80.0-100.0); Monocytes # (auto) 0.8 10 ^3/uL (0-1.3); Monocytes % (auto) 4.2 % (0.0-12.0); Neutrophils # (auto) 17.6 10 ^3/uL (1.6-8.6); Neutrophils % (auto) 89.3 % (37.0-80.0); Platelet Count (auto) 330 10^3/uL (140-450); Red Cell Distribution Width 12.8 % (11.8-14.3); White Blood Cell 19.7 10^3/uL (4.4-10.8)
--- NOTE | 2025-01-26 04:35 | DVH ---
Exam: CT CT AB PEL WITH IV CON ONLY History: Abdominal pain Comparison Study: None available at time of dictation. Technique: Multidetector spiral CT of the abdomen was performed from lung bases to pubic symphysis. A xial imaging was performed with intravenous contrast following the uneventful administration of 100 m l Omnipaque 300. Coronal and sagittal multiplanar reformats were obtained from the axial data set by the technologist. Radiation Dose : 1. Abdomen/Pelvis: CTDIvol 18.61 mGy, DLP 1035.35 mGy*cm. Findings: Lung Bases: Lung bases are clear. Visualized portions of the heart and pericardium are unremarkable. Liver: The liver is normal in size. No focal lesions. Gallbladder and Biliary Tree: The gallbladder is surgically absent. No intrahepatic or extrahepatic b iliary ductal dilatation. Spleen: Unremarkable Pancreas: The pancreas enhances normally and there are no focal lesions. The main pancreatic duct is not dilated Adrenal Glands: Unremarkable Kidneys: Kidneys enhance symmetrically. No calculi or hydronephrosis. GI tract: The stomach is grossly normal in appearance. Fluid-filled small bowel loops without dilatat ion. Diffuse stool throughout the colon. Normal caliber appendix. Peritoneum/mesentery/retroperitoneum. No evidence of free intraperitoneal air. No ascites. No evidenc e of suspicious lymphadenopathy. Abdominal Wall: Fat containing umbilical hernia. Fat containing supraumbilical hernias. Vasculature: Abdominal aorta and main branches are unremarkable. Normal vascular enhancement. Urinary Bladder: Grossly unremarkable for degree of distention. Pelvic Organs: Enhancing circumscribed mass along the cranial aspect of the uterus measuring 2.4 cm m ost likely representing a subserosal fibroid. Musculoskeletal: No aggressive focal bony lesions, acute fractures or dislocation. IMPRESSION: 1. Fluid-filled small bowel loops without dilatation, may reflect enteritis in the appropriate clinic al setting. 2. Uterine fibroid.
[2025-01-26 04:37] VITALS: PULSE 110
--- NOTE | 2025-01-26 04:37 | ED.PDOC ---
GI ASSESSMENT HPI Comments 39-year-old female with past medical history pertinent for DM, presents to ED for epigastric pain x2 hours, associated with nausea, vomiting, shortness of breath. Patient also reports chest pain radiating to her left neck and shoulder. She states that these symptoms started when she was lying down. Patient denies alleviating or aggravating factors. Chief Complaint: Nausea/Vomiting Time Seen by MD: 03:57 Primary Care Provider: NONE Reviewed Notes: Nurses Notes, Medications, Allergies Allergies: Coded Allergies: NO KNOWN ALLERGIES (Unverified , 05/08/18) Home Meds Active Scripts Albuterol Sulfate (Albuterol Sulfate Hfa) 108 Mcg/Act Aer, 108 MCG IN Q6HP PRN for 30 Days, #1 AER 0 Refills Prov:EMMY LITTLE HOT SAW OPERATOR 11/10/24 Promethazine-Dm (Promethazine Dm 6.25-15 mg/5Ml) 1 Anamaria Anamaria, 5 ML PO TID for 10 D ays, #150 ML 0 Refills Prov:EMMY LITTLE NP 11/10/24 Benzonatate (Benzonatate) 200 Mg Cap, 1 CAP PO TID for 10 Days, #30 CAP 0 Refills Prov:EMMY LITTLE NP 11/10/24 Atorvastatin Calcium (ATORVASTATIN CALCIUM) 20 Mg Tab, 20 MG PO HS for 30 Days, #30 TAB Prov:ALEX BILLY MD 07/05/20 Ciprofloxacin Hcl (Cipro) 500 Mg Tab, 1 TAB PO BID, #10 TAB Prov:ALEX BILLY MD 07/05/20 Metformin Hydrochloride (Metformin Hcl) 1,000 Mg Tab, 1 TAB PO BIDWM, #120 TAB 5 Refills Prov:ALEX BILLY MD 07/05/20 Mode of Arrival: Ambulatory Past Medical History PAST MEDICAL HISTORY: DM, High Lipids, Kidney Stones Surgical History: Cholecystectomy Family History Family History: Family hx of DM, Family hx of HTN Social History Smoker: Cigarettes, Less Than 1 Pack/Day Alcohol: Denies ETOH Use Drugs: Denies Drug Use Lives In: Home Constitutional: denies: chills, diaphoresis, fatigue, fever, malaise, sweats, weakness, others EENTM: denies: blurred vision, double vision, ear bleeding, ear discharge, ear drainage, ear pain, ear ringing, eye pain, eye redness, hearing loss, mouth dianna n, mouth swelling, nasal discharge, nose bleeding, nose congestion, nose pain, photophobia, tearing, throat pain, throat swelling, voice changes, others Respiratory: reports: shortness of breath; denies: cough, hemoptysis, orthopnea, SOB at rest, SOB with excertion, stridor, wheezing, others Cardiovascular: reports: chest pain; denies: dizzy spells, diaphoresis, Dyspnea on exertion, edema, irregular heart beat, left arm pain, lightheadedness, palpitations, PND, syncope, others Gastrointestinal: reports: abdominal pain, nausea, vomiting; denies: abdomen distended, blood streaked bowels, constipated, diarrhea, dysphagia, difficulty swallowing, hematemesis, melena, poor appetite, poor fluid intake, rectal bleeding, rectal pain, others Genitourinary: denies: abnormal vagina bleeding, burning, dyspareunia, dysuria, flank pain, frequency, hematuria, incontinence, pain, , vagina discharge, urgency, others Neurological: denies: dizziness, fainting, headache, left sided numbness, left sided weakness, numbness, paresthesia, pre-existing deficit, right sided numbness, right sided weakness, seizure, speech problems, tingling, tremors, weakness, others Musculoskeletal: denies: back pain, gout, joint pain, joint swelling, muscle pain, muscle stiffness, neck pain, others Integumetry: denies: bruises, change in color, change in hair/nails, dryness, laceration, lesions, lumps, rash, wounds, others Allergic/Immunocompromised: denies: Difficulty Healing, Frequent Infections, Hives, Itching, others Hematologic/Lymphatic: denies: anemia, blood clots, easy bleeding, easy bruising, swollen glands, others Endocrine: denies: excessive hunger, excessive sweating, excessive thirst, excessive urination, flushing, intolerance to cold, intolerance to heat, unexplained weight gain, unexplained weight loss, others Psychiatric: denies: anxiety, bipolar disorder, depression, hopeless, panic disorder, schizophrenia, sleepless, suicidal, others All Other Systems: Reviewed and Negative Physical Exam General Appearance: Mild Distress, Normal HEENT: Normal ENT Inspection, Pharynx Normal, TMs Normal Neck: Full Range of Motion, Non-Tender, Normal, Normal Inspection Respiratory: Chest Non-Tender, Lungs Clear, No Accessory Muscle Use, No Respiratory Distress, Normal Breath Sounds Cardiovascular: No Edema, No JVD, No Murmur, No Gallop, Normal Peripheral Pulses, Regular Rate/Rhythm Breast Exam: Deferred Gastrointestinal: Epigastric (Mild tenderness to palpation to the epigastric region.), No Organomegaly, No Pulsatile Mass, Normal Bowel Sounds, Soft Genitalia: Deferred Pelvic: Deferred Rectal: Deferred Extremities: No calf tenderness, Normal capillary refill, Normal inspection, Normal range of motion, Non-tender, No pedal edema Musculoskeletal : Apperance: Normal Neurologic: Alert, group sales coordinator II-XII nml as Tested, No Motor Deficits, Normal Affect, Normal Mood, No Sensory Deficits Cerebellar Function: Normal Reflexes: Normal Skin: Dry, Normal Color, Warm Lymphatic: No Adenopathy EKG EKG : Pulse Rate (adult): 110 [place]: Normal Cardiac Rhythm: ST Block: None Hypertrophy: None ST: Normal Was a procedure done? Was a procedure done?: No GI differential Dx Differential Diagnosis: Appendicitis, Cholecystitis, Diverticular disease, Gastritis/PUD, Gastroenteritis, UTI, Kidney Stone X-Ray, Labs, Meds, VS Vital Signs Date Time Temp Pulse Resp B/P (MAP) Pulse Ox O2 Delivery O2 Flow Rate FiO2 01/26/25 04:37 110 01/26/25 00:53 110 01/26/25 00:39 97.6 113 16 128/77 (94) 98 97.6 Lab Test 01/26/25 00:57 Range/Units White Blood Count 19.7 H 4.4-10.8 10^3/uL Red Blood Count 4.60 4.0-5.20 10^6/uL Hemoglobin 13.2 12.2-16.2 g/dL Hematocrit 40.4 36.0-46.0 % Mean Corpuscular Volume 87.7 80.0-100.0 fL Mean Corpuscular Hemoglobin 28.6 28.0-32.0 pg Mean Corpuscular Hemoglobin Concent 32.6 32.0-36.0 g/dL Red Cell Distribution Width 12.8 11.8-14.3 % Platelet Count 330 140-450 10^3/uL Mean Platelet Volume 7.2 6.9-10.8 fL Neutrophils (%) (Auto) 89.3 H 37.0-80.0 % Lymphocytes (%) (Auto) 5.9 L 10.0-50.0 % Monocytes (%) (Auto) 4.2 0.0-12.0 % Eosinophils (%) (Auto) 0.4 0.0-7.0 % Basophils (%) (Auto) 0.2 0.0-2.0 % Neutrophils # (Auto) 17.6 H 1.6-8.6 10 ^3/uL Lymphocytes # (Auto) 1.2 0.4-5.4 10 ^3/uL Monocytes # (Auto) 0.8 0-1.3 10 ^3/uL Eosinophils # (Auto) 0.1 0-0.8 10 ^3/uL Basophils # (Auto) 0 0-0.2 10 ^3/uL Nucleated Red Blood Cells 0.0 % Sodium Level 140 136-145 mmol/L Potassium Level 4.9 3.5-5.1 mmol/L Chloride Level 106 98-107 mmol/L Carbon Dioxide Level 25 20-31 mmol/L Anion Gap 9 5-15 Blood Urea Nitrogen 22 9-23 mg/dL Creatinine 0.87 0.550-1.02 mg/dL Glomerular Filtration Rate Calc 87 >90 mL/min BUN/Creatinine Ratio 25.3 H 10.0-20.0 Serum Glucose 351 H 74-106 mg/dL Lactic Acid Level 2.9 *H 0.4-2.0 mmol/L Calcium Level 9.5 8.7-10.4 mg/dL Total Bilirubin 0.4 0.2-1.0 mg/dL Aspartate Amino Transferase (AST) 20 13-40 U/L Alanine Aminotransferase (ALT) 24 7-40 U/L Alkaline Phosphatase 61 46-116 U/L Troponin I High Sensitivity < 3 L </=34 ng/L B-Type Natriuretic Peptide 3.84 0-100 pg/mL Total Protein 6.9 5.7-8.2 g/dL Albumin 4.3 3.2-4.8 g/dL Lipase 167 H 12-53 U/L X-Ray, Labs, Meds, VS Comment CT Abd/Pelv IMPRESSION: 1. Fluid-filled small bowel loops without dilatation, may reflect enteritis in the appropriate clinical setting. 2. Uterine fibroid. CXR IMPRESSION: 1. No acute cardiopulmonary disease. MDM: Patient with history as above presented with epigastric pain. History obtained from patient. Patient was nontoxic, stable, afebrile, ambulatory, no acute distress. Exam as above. Labs reviewed. CBC showed leukocytosis of 19.7. There was increased neutrophils. CMP showed no significant electrolyte abnormalities. Glucose was elevated at 351. Lipase elevated at 167. Lactic acid elevated at 2.9. Troponin was negative. Independently reviewed imaging. CXR did not show acute cardiopulmonary disease. CT Abd/Pelvis showed enteritis. Reviewed external records. Differential diagnosis considered. Overall presentation is consistent with sepsis with pancreatitis. Low suspicion for acute appendicitis, ACS, pneumonia, bowel obstruction, kidney stones. Before results returned, patient stated that she wanted to leave because she did not want to wait any longer. This patient has elected to leave against medical advice. In my opinion, the patient has capacity to leave AMA. The patient is clinically sober, free from distracting injury, appears to have intact insight, judgment, and reason; therefore, the patient has the capacity to make decisions. I explained to the patient that these symptoms may represent a serious underlying medical condition and the patient verbalized understanding of my concerns and understands the consequences of leaving without complete evaluation. I had a discussion with the patient about their workup and results, and informed the patient what the next step in diagnosis and treatment would be, and they verbalized understanding of this as well. I explained the risks of leaving without further workup or treatment, which included reasonably foreseeable complications such as , serious injury, prolonged illness, and permanent disability. I discussed the specific benefits of additional treatment and also offered alternatives to departing AMA, such as assigning the patient a different provider or an alternate workup pathway. However, the patient declined and insisted on leaving against medical advice. I answered all of the patient's questions about their condition and I asked them to follow up with their PCP as soon as possible or return to this ER for further evaluation whenever they choose. Patient voiced understanding. Disposition: AMA This medical document was created using the Proficientation system. Although this document has been carefully reviewed, there may still be some phonetic and typographical errors, which are due to imperfections of the software program, and do not reflect any compromise in the patient's medical care. Time of 1ST Reevaluation: 04:35 Reevaluation 1ST: N/A (AMA) Patient Education/Counseling: Other (AMA) Family Education/Counseling: No Family Present Departure 1 Departure Time of Disposition: 04:39 Impression: Primary Impression: Sepsis Qualified Codes: A41.9 - Sepsis, unspecified organism Additional Impression: Pancreatitis Qualified Codes: K85.90 - Acute pancreatitis without necrosis or infection, unspecified Disposition: 07 LEFT AGAINST MEDICAL ADVICE Condition: Fair Critical Care Note Critical Care Time?: No Stability Stability form required: No Heart Score Heart Score: Heart Score Response (Comments) Value History Slightly Suspicious 0 EKG Normal 0 Age <45 0 Risk Factors 1 or 2 risk factors 1 Troponin Normal limit 0 Total 1 FELIPE BILLY [facility] Jan 26, 2025 04:37
[2025-01-26 04:40] LABS: Alanine Aminotransferase 24 U/L (7-40); Albumin 4.3 g/dL (3.2-4.8); Alkaline Phosphatase 61 U/L (46-116); Anion Gap 9 (5-15); Aspartate Aminotransferase 20 U/L (13-40); BUN/Creatinine Ratio 25.3 (10.0-20.0); Bilirubin, Total 0.4 mg/dL (0.2-1.0); Blood Urea Nitrogen 22 mg/dL (9-23); Calcium 9.5 mg/dL (8.7-10.4); Carbon Dioxide 25 mmol/L (20-31); Chloride 106 mmol/L (98-107); Glucose 351 mg/dL (74-106); Lipase 167 U/L (12-53); Potassium 4.9 mmol/L (3.5-5.1); Sodium 140 mmol/L (136-145); Total Protein 6.9 g/dL (5.7-8.2)
--- NOTE | 2025-01-26 06:40 | ECG ---
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
== END 2025-01-26 04:38 | disposition left against medical advice (07) ==
LOC: ER 00:17
DX: A41.9 Sepsis, unspecified organism (principal); K85.90 Acute pancreatitis without necrosis or infection, unspecified; E11.9 Type 2 diabetes mellitus without complications; E78.5 Hyperlipidemia, unspecified; F17.210 Nicotine dependence, cigarettes, uncomplicated; Z90.49 Acquired absence of other specified parts of digestive tract; Z79.899 Other long term (current) drug therapy
CPT/HCPCS: 36415; 71045; 74177; 80053; 83605; 83690; 83880; 84484; 85025; 93005; 99285; Q9967

== ENCOUNTER 2025-04-04 10:27 | Emergency (ER) | payer MEDICAID ==
[~2025-04-04] VITALS: Ht 154.9 cm; Wt 66.6 kg
[2025-04-04 10:52] VITALS: BP 126/82; PULSE 108; RESP 21; TEMP 97.8; O2SAT 98
--- NOTE | 2025-04-04 11:33 | ED.PDOC ---
SOB-HPI HPI Comments A 39 year old female with a past medical history of hyperlipidemia, diabetes presents to the emergency department with a chief complaint of cough onset 3 days. She has been experiencing cough with chest pressure, sore throat, fever, congestion for the past 3 days. Last fever was last night, 101 F, has been taking Tylenol for symptoms, last dose was this morning. Patient is concerned for possible Pneumonia, experienced similar symptoms 8 months ago, was hospitalized for Pneumonia. Patient's [id number] was experienced cough recently. No other symptoms or modifying factors present at this time. Denies night sweats unintentional weight loss Denies shortness of breath, leg swelling Denies history of asthma Denies recent international travel Denies nausea vomiting diarrhea Chief Complaint: Flu like Time Seen by MD: 11:20 Primary Care Provider: UNKNOWN Reviewed notes: Medications, Allergies Information Source: Patient Mode of Arrival: Ambulatory Severity: Moderate Timing: Days Duration: Since onset Context: At Rest PE Risk Factors: None History of: None Prehospital treatment: Pain Meds (Tylenol) Modifying Factors: Nothing Associated Signs and Symptoms: Fever, Cough, Sore Throat, Chest Pain Quality: Pressure Radiation: No Radiation Location: Substernal If cough with SOB: Non-Productive Past Medical History PAST MEDICAL HISTORY: DM, High Lipids, Kidney Stones Surgical History: Cholecystectomy Family History Family History: Family hx of DM, Family hx of HTN Social History Smoker: Cigarettes, Less Than 1 Pack/Day Alcohol: Denies ETOH Use Drugs: Denies Drug Use Lives In: Home All Other Systems: Reviewed and Negative (as per HPI) Physical Exam General Appearance: No Apparent Distress, Normal HEENT: Normal ENT Inspection, Pharynx Normal, TMs Normal Neck: Full Range of Motion, Non-Tender, Normal, Normal Inspection Respiratory: No Accessory Muscle Use, No Respiratory Distress, Normal Breath Sounds Cardiovascular: No Edema, No JVD, No Murmur, No Gallop, Normal Peripheral Pulses, Regular Rate/Rhythm Breast Exam: Deferred Gastrointestinal: No Organomegaly, Non Tender, No Pulsatile Mass, Normal Bowel Sounds, Soft Genitalia: Deferred Pelvic: Deferred Rectal: Deferred Extremities: No calf tenderness, Normal capillary refill, Normal inspection, Normal range of motion, Non-tender, No pedal edema Musculoskeletal : Apperance: Normal Neurologic: Alert, oxyacetylene burner II-XII nml as Tested, No Motor Deficits, Normal Affect, Normal Mood, No Sensory Deficits Cerebellar Function: Normal Reflexes: Normal Skin: Dry, Normal Color, Warm Lymphatic: No Adenopathy Was a procedure done? Was a procedure done?: No Differential Dx Differential Diagnosis: Asthma, Bronchitis, Sinusitis, Pharyngitis, URI X-Ray, Labs, Meds, VS Vital Signs Date Time Temp Pulse Resp B/P (MAP) Pulse Ox O2 Delivery O2 Flow Rate FiO2 04/04/25 10:52 97.8 108 21 126/82 (97) 98 97.8 04/04/25 10:52 108 21 98 Room Air 04/04/25 10:48 20 98 Room Air* 0 21 04/04/25 10:46 97.8 108 20 126/82 (97) 98 97.8 Lab Test 04/04/25 11:24 04/04/25 10:45 Range/Units Urine Color Yellow Yellow Urine Clarity Clear Clear Urine pH 6.5 5.0-9.0 Urine Specific [place] 1.024 1.001-1.035 Urine Protein Trace H Negative Urine Ketones Negative Negative Urine Blood Negative Negative /uL Urine Nitrite Negative Negative Urine Bilirubin Negative Negative Urine Urobilinogen Normal Negative mg/dL Urine Leukocyte Esterase Negative Negative /uL Urine RBC 2 0 - 4 /hpf Urine Microscopic WBC 1 0-5 /HPF Urine Squamous Epithelial Cells Few <5 /hpf Urine Bacteria Few H None Seen /hpf Urine Glucose Normal Normal mg/dL POC Glucose 305 H 70-106 mg/dl PATIENT: JAVED SMITH EACCT: [id number]: [id number] : 1985 LOC: ER ROOM / BED: / AGE / SEX: 39 / F ADM STATUS: REG ER SERVICE [id number] ORDERING PHYSICIAN: EMMY LITTLE NP PROCEDURE(s): CXR1 - CHEST XRAY 1 VIEW REASON: R/o pna ORDER NUMBER(s): [id number], ACCESSION NUMBER(s): [id number] EXAM: XY CHEST XRAY 1 VIEW HISTORY: R/o pna COMPARISON: XY CHEST XRAY 1 VIEW on DOS: 01/26/25, XY CHEST PORTABLE on DOS: 11/10/24, CHEST PORTABLE on DOS: 07/04/20, CHEST PORTABLE on DOS: 01/04/20 TECHNIQUE: Portable AP view of the chest was performed. FINDINGS: No pneumothorax, new infiltrates, or pulmonary edema. There is mild central peribronchial thickening. The heart is not enlarged. IMPRESSION: Mild reactive airways disease. The lungs are otherwise clear. ATED BY: TAYLOR STEVENS MD DICTATED DATE/TIME: 04/04/251206 SIGNED BY: TAYLOR STEVENS MD SIGNED DATE/TIME: 04/04/251206 CC: X-Ray, Labs, Meds, VS Comment A 39 year old female with a past medical history of hyperlipidemia, diabetes presents to the emergency department with a chief complaint of cough onset 3 days. Patient arrives alert and oriented, ABC's intact, afebrile, vital signs stable, saturating well in room air Patient presents with cough w/o accessory muscle use Unclear cause of the exact cause Differentials considered but not limited to: PNA, bronchitis, Foreign body airway obstruction, GERD. I also considered pulmonary embolism, CHF, COPD, however, this is less likely as the patients pulse oximetry is with normal limits and ambulating without difficulty. Chest X-Ray interpreted independently by myself as not showing focal consolidations or lobar pneumonia. Urinalysis was ordered to rule out UTI or hematuria. Discussed viral etiologies with the patient however viral testing was not indicated as it does not microsoft exchange administrator and the patient was overall well- appearing. Additional MDM Review of External, Non-ED records: External records reviewed. Discussion with independent historian (EMS, family) history obtained from the patient/parents (if applicable) at bedside Chronic conditions affecting care: HLD, DM, kidney stones Social determinants of health affecting care: cigarettes Consideration of admission (observation or admission): I considered escalation of care to admission for this patient, however given the reassuring workup, the patient is safe for outpatient management. Time of 1ST Reevaluation: 11:50 Reevaluation 1ST: Unchanged Patient Education/Counseling: Diagnosis, Treatment, Need For Follow Up Family Education/Counseling: No Family Present Departure 1 Departure Time of Disposition: 12:13 Impression: Primary Impression: Reactive airway disease Qualified Codes: J45.20 - Mild intermittent asthma, uncomplicated Disposition: 01 HOME / SELF CARE / HOMELESS Condition: Stable e-Prescriptions Promethazine-Dm (Promethazine Dm 6.25-15 mg/5Ml) 1 Anamaria Anamaria 5 ML PO TIDPRN PRN for 10 Days, #150 ML 0 Refills Prov: ANABELEMMY Beckham ACCOUNTANT TAX 04/04/25 Benzonatate (Benzonatate) 100 Mg Cap 1 CAP PO TID for 10 Days, #30 CAP 0 Refills Prov: EMMY LITTLE ACCOUNTANT TAX 04/04/25 Albuterol Sulfate (Albuterol Sulfate Hfa) 108 Mcg/Act Aer 1 PUFF IN Q6HP PRN for 30 Days, #1 AER 0 Refills Prov: JERICHO LITTLEO [place] ACCOUNTANT TAX 04/04/25 Critical Care Note Critical Care Time?: No Stability Stability form required: No Heart Score Heart Score: Heart Score Response (Comments) Value History N/A 0 EKG N/A 0 Age N/A 0 Risk Factors N/A 0 Troponin N/A 0 Total 0 I personally scribed for EMMY LITTLE ACCOUNTANT TAX (VERENICEOMA) on 04/04/25 at 11:33. Electronically submitted by Candie Sarmiento ([email or web address]). I personally scribed for EMMY LITTLE ACCOUNTANT TAX (VERENICEOMA) on 04/04/25 at 11:37. Electronically submitted by Candie Sarmiento ([email or web address]). I personally scribed for EMMY LITTLE ACCOUNTANT TAX (VERENICEOMA) on 04/04/25 at 12:26. Electronically submitted by Candie Sarmiento ([email or web address]). EMMY LITTLE NP Apr 04, 2025 11:33
[2025-04-04 11:45] LABS: Urine Bacteria FEW /hpf (None Seen); Urine Blood Negative /uL (Negative); Urine Clarity Clear (Clear); Urine Color Yellow (Yellow); Urine Protein, UAD TRACE (Negative); Urine Specific Gravity 1.024 (1.001-1.035); Urine Squamous Epithelial Cell FEW /hpf (<5); Urine Urobilinogen Normal (Negative); Urine WBC 1 /HPF (0-5); Urine pH 6.5 (5.0-9.0)
--- NOTE | 2025-04-04 12:10 | DVH ---
EXAM: XY CHEST XRAY 1 VIEW HISTORY: R/o pna COMPARISON: XY CHEST XRAY 1 VIEW on DOS: 01/26/25, XY CHEST PORTABLE on DOS: 11/10/24, CHEST PORTABLE on DOS: 07/04/20, CHEST PORTABLE on DOS: 01/04/20 TECHNIQUE: Portable AP view of the chest was performed. FINDINGS: No pneumothorax, new infiltrates, or pulmonary edema. There is mild central peribronchial thickening. The heart is not enlarged. IMPRESSION: Mild reactive airways disease. The lungs are otherwise clear.
[2025-04-04] MEDS ORDERED: PROM1SOL4 PO (12:15)
[2025-04-04] MEDS ORDERED: BENZ100C97 PO (12:15)
== END 2025-04-04 12:51 | disposition home or self-care (01) ==
LOC: ER 10:27
DX: J45.909 Unspecified asthma, uncomplicated (principal); E11.9 Type 2 diabetes mellitus without complications; E78.5 Hyperlipidemia, unspecified; F17.210 Nicotine dependence, cigarettes, uncomplicated; Z90.49 Acquired absence of other specified parts of digestive tract
CPT/HCPCS: 71045; 81001; 82947; 82962